=== PATIENT | male | born 1960 | race Caucasian/White ===

== ENCOUNTER 2019-09-18 01:38 | Emergency (ER) | payer OTHER ==
[~2019-09-18] VITALS: Ht 167.6 cm; Wt 81.7 kg
[2019-09-18] MEDS ORDERED: Ultram50 MG PO (02:19)
== END 2019-09-18 03:08 | disposition home or self-care (01) ==
LOC: ER 01:38
DX: J45.909 Unspecified asthma, uncomplicated (principal); J96.11 Chronic respiratory failure with hypoxia; F17.200 Nicotine dependence, unspecified, uncomplicated; Z59.0 Homelessness
CPT/HCPCS: 94640; 99283-25